=== PATIENT | male | born 1985 | race American Indian/Alaskan Native ===

== ENCOUNTER 2019-07-22 20:54 | Emergency (ER) | payer SELFPAY ==
[2019-07-22] MEDS ORDERED: TETANUS,DIPH,PERTUSS(ACELL) VACCINE 0.5 ML SYRINGE IM ONE (21:18)
[2019-07-22] MEDS ORDERED: LIDOCAINE 1%/EPINEPHRINE 1:100,000 VIAL (20 ML) INFILTRATI ONE (21:18)
[2019-07-22] MEDS ORDERED: IBUPROFEN 600 MG TAB PO ONE (21:18)
--- NOTE | 2019-07-22 21:23 | Emergency Department Report ---
ED Syncope HPI - General Chief Complaint: Fall Stated Complaint: HEAD INJURY Time Seen by Provider: 07/22/19 21:10 Source: patient Exam Limitations: intoxication - History of Present Illness Initial Comments: Mr. Gonzalez is a 33-year-old male without significant past medical history who presents after syncopal episode. After taking a big puff of marijuana, he passed out to the ground. The episode was witnessed by friends. He struck his head. He has a laceration at the right mu-ism. At this point he is confused. He does not know how he got to the hospital. He does not know the situation. He does know that he is likely in the hospital. He does know his name. "I do not know how I got here." Timing/Prior Episodes: no prior history Precipitating Factors: Positive: other (Marijuana use head trauma) Context: standing Loss of Consciousness: brief (seconds) Current Symptoms: other (Amnesia confusion) - Related Data Allergies/Adverse Reactions: Allergies No Known Allergies Allergy (Unverified 07/22/19 21:10) ED Review of Systems ROS: Stated complaint: HEAD INJURY Other details as noted in HPI Comment: All other systems reviewed and negative Constitutional: denies: fever, malaise Respiratory: denies: cough, shortness of breath Skin: other (Facial laceration) Neurological: confusion ED Past Medical Hx - Past Medical History Previous Medical History?: No - Surgical History Past Surgical History?: No - Social History Smoking Status: Never Smoker Substance Use Type: Marijuana ED Physical Exam - General Limitations: No Limitations General appearance: alert, in no apparent distress - Head Head exam: Present: normocephalic, other (4 cm jagged laceration deep to the subcutaneous tissue just adjacent to the right eye extending into the right eyelid) - Eye Eye exam: Present: normal appearance. Absent: scleral icterus, conjunctival injection - ENT ENT exam: Present: mucous membranes moist - Neck Neck exam: Present: normal inspection - Respiratory Respiratory exam: Present: normal lung sounds bilaterally. Absent: respiratory distress, wheezes, rales, rhonchi - Cardiovascular Cardiovascular Exam: Present: regular rate, normal rhythm, normal heart sounds. Absent: systolic murmur, diastolic murmur, rubs, gallop - GI/Abdominal GI/Abdominal exam: Present: soft, normal bowel sounds. Absent: distended, tenderness, guarding, rebound - Rectal Rectal exam: Present: deferred - Extremities Exam Extremities exam: Present: normal inspection - Neurological Exam Neurological exam: Present: alert, oriented X3 - Psychiatric Psychiatric exam: Present: normal affect, normal mood - Skin Skin exam: Present: warm, dry, normal color. Absent: rash ED Course Vital Signs 07/22/19 21:10 Temperature 97.5 F L Pulse Rate 101 H Respiratory 18 Rate Blood Pressure 145/74 O2 Sat by Pulse 100 Oximetry - Laceration /Wound Repair Right Face Wound Location: face Wound's Depth, Shape: into muscle Wound Explored: clean Betadine Prep?: Yes Anesthesia: Lidocaine w/ Epi Volume Anesthetic (ccs): 5 Wound Debrided: minimal Wound Repaired With: sutures Suture Size/Type: 5:0, nylon Number of Sutures: 9 Sterile Dressing Applied?: No ED Medical Decision Making - Radiology Data Radiology results: report reviewed CT head without acute traumatic injury according to radiology impression - Medical Decision Making 1. Syncope versus fall after using marijuana. No indication of arrhythmia pulmonary embolism ACS according to presentation. Patient is currently symptom- free. 2. Closed head injury with laceration: CT head without acute traumatic injury, CT head indicated due to loss of consciousness. Laceration repair complex 9 sutures. Tdap booster provided. Wound care instructions provided. Critical care attestation.: If time is entered above; I have spent that time in minutes in the direct care of this critically ill patient, excluding procedure time. ED Disposition Clinical Impression: Syncope, Marijuana intoxication, Complex laceration of face Disposition: DC-01 TO HOME OR SELFCARE Is pt being admited?: No Does the pt Need Aspirin: No Condition: Stable Instructions: Syncope (ED), Suture Care (ED) Additional Instructions: Please have your 9 stitches removed in 5 to 7 days.
[2019-07-22] MEDS ORDERED: SODIUM CHLORIDE IRRI 500 ML 500 ML IR ONE (21:36)
--- NOTE | 2019-07-22 21:43 | Cat Scan Report ---
CT head/brain wo con INDICATION / CLINICAL INFORMATION: 33 years Male; Fall with head trauma, now with confusion. TECHNIQUE: Routine CT head without contrast. All CT scans at this location are performed using CT dos e reduction for ALARA by means of automated exposure control. COMPARISON: None. FINDINGS: BRAIN / INTRACRANIAL CONTENTS: No acute hemorrhage, mass effect, midline shift, hydrocephalus, or acu te, large territorial infarct. No chronic infarct or atrophy appreciated. No significant white matter abnormality. CRANIOCERVICAL JUNCTION: No significant abnormality. ORBITS: No significant abnormality of visualized orbits. SINUSES / MASTOIDS: No significant abnormality the visualized paranasal sinuses or mastoid air cells. Osteoma seen in the right frontal sinus-of no clinical significance. ADDITIONAL FINDINGS: Skin laceration suggested in the right lateral orbital/temporal region. IMPRESSION: 1. No focal mass, intracranial hemorrhage, hydrocephalus, or acute, large territorial infarct. Signer Name: Doroteo Carter MD, III Signed: 07/22/2019 9:38 PM Workstation Name: [id number]
[2019-07-23 00:25] VITALS: BP 137/82
== END 2019-07-23 00:24 | disposition home or self-care (01) ==
LOC: ED 20:54
DX: S01.81XA Laceration without foreign body of other part of head, initial encounter (principal); R55 Syncope and collapse; F12.929 Cannabis use, unspecified with intoxication, unspecified; W22.8XXA Striking against or struck by other objects, initial encounter; Y93.89 Activity, other specified; Y92.89 Other specified places as the place of occurrence of the external cause; Y99.8 Other external cause status
CPT/HCPCS: 70450; 90471; 90715; 99284